=== PATIENT | female | born 1975 | race Caucasian/White ===

== ENCOUNTER 2017-06-08 22:37 | Emergency (ER) | payer OTHER | END 2017-06-09 03:48 | disposition home or self-care (01) | LOC: E/R 22:37 | DX: S93.402A Sprain of unspecified ligament of left ankle, initial encounter (principal); R22.0 Localized swelling, mass and lump, head; W19.XXXA Unspecified fall, initial encounter; Y92.9 Unspecified place or not applicable | CPT/HCPCS: 70450; 72125; 73610; 99285-25 ==